=== PATIENT | male | born 1990 | race Caucasian/White ===

== ENCOUNTER 2021-01-13 08:02 | Emergency (ER) | payer MEDICAID ==
[~2021-01-13] VITALS: Ht 180.3 cm; Wt 86.2 kg
[2021-01-13 08:12] VITALS: BP_SYST 127
[2021-01-13 08:42] LABS: BASOPHILS % (AUTO) 0.6 % (0.0-2.0); EOSINOPHILS # (AUTO) 0.1 K/uL (0.0-0.4); EOSINOPHILS % (AUTO) 0.8 % (0.0-4.0); HEMATOCRIT 48.8 % (36-54); HEMOGLOBIN 16.7 g/dL (14.0-18.0); LYMPHOCYTES # (AUTO) 1.7 K/uL (1.0-5.5); LYMPHOCYTES % (AUTO) 26.3 % (20.5-51.5); MEAN CORPUSCULAR HEMOGLOBIN 32 pg (27-31); MEAN CORPUSCULAR HGB CONC 34 % (32-36); MEAN CORPUSCULAR VOLUME 92 fL (79.0-98.0); MONOCYTES # (AUTO) 0.3 K/uL (0.0-1.0); MONOCYTES % (AUTO) 4.4 % (1.7-9.3); NEUTROPHILS # (AUTO) 4.4 K/uL (1.8-7.7); NEUTROPHILS % (AUTO) 67.9 % (40.0-70.0); PLATELET COUNT (AUTO) 210 K/uL (130-430); RED BLOOD CELL COUNT(AUTO) 5.28 MIL/uL (4.2-6.2); RED CELL DISTRIBUTION WIDTH 12.6 % (9.0-15.0); WHITE BLOOD COUNT (AUTO) 6.5 K/uL (4.8-10.8)
[2021-01-13 08:57] LABS: ANION GAP 7 (5-15); CALCIUM 9.3 mg/dL (8.4-11.0); CHLORIDE 102 mmol/L (98-107); GLUCOSE 105 mg/dL (70-99); POTASSIUM 4.2 mmol/L (3.5-5.1); SODIUM SERUM 138 mmol/L (136-145); UREA NITROGEN, BLOOD 22 mg/dL (8-21)
[2021-01-13 08:59] LABS: GFR AFRICAN AMERICAN 113 mL/min (>90)
[2021-01-13 09:59] VITALS: BP_SYST 127
== END 2021-01-13 09:59 | disposition home or self-care (01) ==
LOC: SED 08:02
DX: R07.89 Other chest pain (principal); R20.0 Anesthesia of skin; I10 Essential (primary) hypertension; F12.90 Cannabis use, unspecified, uncomplicated
CPT/HCPCS: 36415; 71045; 80048; 84484; 85025; 93005; 99285

== ENCOUNTER 2021-04-08 08:06 | Emergency (ER) | payer MEDICAID, SELFPAY ==
[~2021-04-08] VITALS: Ht 180.3 cm; Wt 81.6 kg
[2021-04-08 08:10] VITALS: BP_SYST 140
[2021-04-08 09:49] VITALS: BP_SYST 140
== END 2021-04-08 09:50 | disposition home or self-care (01) ==
LOC: SED 08:06
DX: J06.9 Acute upper respiratory infection, unspecified (principal); I10 Essential (primary) hypertension; Z20.822 Contact with and (suspected) exposure to COVID-19
CPT/HCPCS: 36415; 86710; 99283

== ENCOUNTER 2023-06-28 06:36 | Emergency (ER) | payer BC, MEDICAID ==
[~2023-06-28] VITALS: Ht 180.3 cm; Wt 81.6 kg
[2023-06-28 06:42] VITALS: BP_SYST 132; PULSE 85; RESP 14; TEMP 98.7; O2SAT 100
[2023-06-28] MEDS ORDERED: TRAM50TA2 PO (07:34)
[2023-06-28 07:42] VITALS: BP_SYST 121; PULSE 71; RESP 18; TEMP 97.6; O2SAT 99
== END 2023-06-28 07:42 | disposition home or self-care (01) ==
LOC: SED 06:36
DX: S30.22XA Contusion of scrotum and testes, initial encounter (principal); I10 Essential (primary) hypertension; Z79.899 Other long term (current) drug therapy; W21.02XA Struck by soccer ball, initial encounter; Y93.66 Activity, soccer; Y92.89 Other specified places as the place of occurrence of the external cause; Y99.8 Other external cause status
CPT/HCPCS: 99283

== ENCOUNTER 2023-10-13 11:35 | Emergency (ER) | payer BC ==
[~2023-10-13] VITALS: Ht 180.3 cm; Wt 81.6 kg
[~2023-10-13 11:35] MED LIST: TRAM50TA2 PO
[2023-10-13 11:40] VITALS: BP_SYST 140; PULSE 89; RESP 19; TEMP 98.2; O2SAT 96
[2023-10-13] MEDS ORDERED: NAPR-688 PO (12:33)
[2023-10-13] MEDS ORDERED: ONDA-8 TL (12:33)
[2023-10-13 12:40] VITALS: BP_SYST 140; PULSE 89; RESP 19; TEMP 98.2; O2SAT 96
== END 2023-10-13 12:38 | disposition home or self-care (01) ==
LOC: SED 11:35
DX: K52.9 Noninfective gastroenteritis and colitis, unspecified (principal); R51.9 Headache, unspecified; R42 Dizziness and giddiness; R11.2 Nausea with vomiting, unspecified; I10 Essential (primary) hypertension; Z79.899 Other long term (current) drug therapy
CPT/HCPCS: 99283

== ENCOUNTER 2023-11-27 11:52 | Emergency (ER) | payer BC ==
[~2023-11-27] VITALS: Ht 180.3 cm; Wt 81.6 kg
[~2023-11-27 11:52] MED LIST changes: +NAPR-688 PO; +ONDA-8 TL
[2023-11-27 12:13] VITALS: BP_SYST 138; PULSE 78; RESP 17; TEMP 98.6; O2SAT 98
[2023-11-27 13:25] LABS: COVID19 ANTIGEN SOFIA FIA NEGATIVE (NEGATIVE)
[2023-11-27 13:55] LABS: INFLUENZA TYPE A Negative (NEGATIVE); INFLUENZA TYPE B NEGATIVE (NEGATIVE)
[2023-11-27 14:50] VITALS: PULSE 78; RESP 17; TEMP 98.6; O2SAT 98
== END 2023-11-27 14:59 | disposition home or self-care (01) ==
LOC: SED 11:52
DX: R11.2 Nausea with vomiting, unspecified (principal); A05.9 Bacterial foodborne intoxication, unspecified; Z20.822 Contact with and (suspected) exposure to COVID-19; R42 Dizziness and giddiness; I10 Essential (primary) hypertension; Z79.899 Other long term (current) drug therapy; Z79.2 Long term (current) use of antibiotics
CPT/HCPCS: 36415; 99283